=== PATIENT | male | born 1965 | race Caucasian/White ===

== ENCOUNTER 2016-10-16 18:29 | Emergency (ER) | payer BC ==
[2016-10-16] MEDS ORDERED: IBUPROFEN 600 MG TAB ONE (18:53)
[2016-10-16] MEDS ORDERED: IBUPROFEN 600 MG TAB PO ONE (18:53)
[2016-10-16 19:17] VITALS: RESP 20
[2016-10-16 19:50] LABS: BASOPHILS % (AUTO) 0 % (0-3); EOSINOPHILS % (AUTO) 0 % (0-9); HEMATOCRIT 46 % (39-53); MEAN CORPUSCULAR HGB CONC 33.7 gm/dl (32.0-36.0); MEAN CORPUSCULAR VOLUME 82 fL (80-100); MONOCYTES % (AUTO) 8.5 % (0-12); NEUTROPHILS % (AUTO) 81.5 % (37-80)
[2016-10-16 20:03] LABS: ALBUMIN 3.4 gm/dl (3.4-5.0); CALCIUM 8.6 mg/dl (8.5-10.1); POTASSIUM 3.6 mMol/L (3.5-5.1)
[2016-10-16 20:13] LABS: APPEARANCE,URINE Clear; BILIRUBIN,URINE 1+ (NEGATIVE); COLOR,URINE Yellow; GLUCOSE, URINE (UA) NEGATIVE (NEGATIVE); KETONES,URINE TRACE (NEGATIVE); LEUKOCYTE ESTERASE ,URINE NEGATIVE (NEGATIVE); NITRATE,URINE NEGATIVE (NEGATIVE); OCCULT BLOOD,URINE TRACE LYSED (NEG-TRACE); UROBILINOGEN,URINE 0.2 (0.2-1.0 EU)
[2016-10-16 20:21] LABS: ICTOTEST,URINE NEGATIVE (NEGATIVE); RBC,URINE 0-2 (0-3AV/HPF); WBC,URINE 0-2 (0-5AV/HPF)
[2016-10-16 20:35] VITALS: BP 123/85; PULSE 85; TEMP 99.4; O2SAT 94
[2016-10-16] MEDS ORDERED: DOXYCYCLINE 100 MG TAB PO ONE (20:35)
[2016-10-16] MEDS ORDERED: DOXYCYCLINE 100 MG TAB ONE (20:38)
== END 2016-10-16 20:49 | disposition home or self-care (01) ==
LOC: ED 18:29
DX: J21.9 Acute bronchiolitis, unspecified (principal)
CPT/HCPCS: 36415; 71020; 80053; 81001; 85025; 87040; 87430; 99283